=== PATIENT | female | born 1985 | race African-American/Black ===

== ENCOUNTER 2017-10-29 13:23 | Emergency (ER) | payer OTHER ==
[~2017-10-29] VITALS: Ht 162.6 cm; Wt 65.8 kg
[2017-10-29 13:23] VITALS: BP 166/108
== END 2017-10-29 14:08 | disposition home or self-care (01) ==
LOC: ER 13:31
DX: S50.12XA Contusion of left forearm, initial encounter (principal); I10 Essential (primary) hypertension; F41.9 Anxiety disorder, unspecified; X58.XXXA Exposure to other specified factors, initial encounter; Y93.89 Activity, other specified; Y92.89 Other specified places as the place of occurrence of the external cause; Y99.8 Other external cause status
CPT/HCPCS: A4606; Z7502; Z7610